=== PATIENT | male | born 1940 | race Caucasian/White ===

== ENCOUNTER 2017-11-08 15:42 | Inpatient (IN) | payer MEDICARE ==
[~2017-11-08] VITALS: Ht 167.6 cm; Wt 81.0 kg
[~2017-11-08 15:42] MED LIST: ASPI-611 PO; CLOP75TA15 PO; HCTZ25T; HYDR-565 PO; LOSA25TA96 PO; METO50TA16 PO; OMEP-50; SIMV40TA4 PO
[2017-11-08] MEDS ORDERED: aspirin 81mg tab.chew PO ONE (15:50)
[2017-11-08 16:15] LABS: BASOPHILS # (AUTO) 0.1 X10'3 (0-0.2); EOSINOPHILS # (AUTO) 0.2 X10'3 (0-0.9); EOSINOPHILS % (AUTO) 2.6 % (0-6); HEMOGLOBIN 13.5 g/dl (14.0-17.9); LYMPHOCYTES # (AUTO) 1.1 X10'3 (1.1-4.8); LYMPHOCYTES % (AUTO) 15.8 % (21-51); MEAN CORPUSCULAR HEMOGLOBIN 29.7 PG (27.0-31.0); MEAN CORPUSCULAR HGB CONC 35.6 % (33.0-36.5); MEAN CORPUSCULAR VOLUME 83.4 FL (78-98); MEAN PLATELET VOLUME 8.3 FL (7.4-10.4); MONOCYTES # (AUTO) 0.3 X10'3 (0-0.9); MONOCYTES % (AUTO) 4.2 % (2-12); NEUTROPHILS # (AUTO) 5.2 X10'3 (1.8-7.7); NEUTROPHILS % (AUTO) 76.4 % (42-75); PLATELET COUNT 204 X10'3 (140-440); RED BLOOD COUNT 4.55 X10'6 (4.70-6.10); RED CELL DISTRIBUTION WIDTH 13.6 % (11.5-14.5); WHITE BLOOD COUNT 6.8 X10'3 (4.5-11.0)
[2017-11-08 16:24] LABS: PARTIAL THROMBOPLASTIN TIME 25 SECONDS (22-32); PROTHROMBIN TIME 10.3 SECONDS (9.0-12.0)
[2017-11-08 16:36] LABS: ALANINE AMINOTRANSFERASE 22 U/L (12-78); ALBUMIN 3.5 G/DL (3.4-5.0); ALBUMIN/GLOBULIN RATIO 1.1 (1.1-1.5); ALKALINE PHOSPHATASE 56 IU/L (46-116); ANION GAP 9 (8-16); ASPARTATE AMINO TRANSFERASE 15 U/L (10-37); BILIRUBIN,TOTAL 0.5 MG/DL (0.1-1.0); BLOOD UREA NITROGEN 13 MG/DL (7-18); BUN/CREATININE RATIO 14.6 (5.4-32.0); CALCIUM 8.6 MG/DL (8.5-10.1); CHLORIDE 108 MMOL/L (99-107); CREATININE 0.89 MG/DL (0.60-1.10); GLUCOSE 154 MG/DL (70-104); MAGNESIUM 2.1 MG/DL (1.5-2.4); POTASSIUM 3.3 MMOL/L (3.5-5.1); SODIUM 144 MMOL/L (135-145); TOTAL CARBON DIOXIDE 26.7 MMOL/L (24-32); TOTAL PROTEIN 6.7 G/DL (6.4-8.2); eGFR 83 ML/MIN
[2017-11-08] MEDS ORDERED: mag hydrox/Alum hydrox/simeth 30ml oral suspension PO PRN (17:00)
[2017-11-08] MEDS ORDERED: HYDROcodone/acetaminophen 5mg/325mg tablet PO PRN (17:00)
[2017-11-08] MEDS ORDERED: magnesium hydroxide 30ml (MOM) UD suspension PO PRN (17:00)
[2017-11-08] MEDS ORDERED: acetaminophen 325mg tablet PO PRN (17:00)
[2017-11-08] MEDS ORDERED: ondansetron/PF 4mg/2ml inj IV PRN (17:00)
[2017-11-08 18:00] VITALS: BP 163/66
[2017-11-08] MEDS ORDERED: magnesium Cl slow-release 64mg tablet PO PRN (20:15)
[2017-11-08] MEDS ORDERED: potassium Cl 20 mEq SR tablet PO PRN (20:15)
[2017-11-08] MEDS ORDERED: nitroGLYCERIN 0.4mg SUBLingual tab SL PRN (20:15)
[2017-11-08] MEDS ORDERED: magnesium 4gm in 100ml NS 100 ML IV PRN (20:15)
[2017-11-08] MEDS ORDERED: magnesium 2GM in 50ml NS 50 ML IV PRN (20:15)
[2017-11-08] MEDS ORDERED: potassium Cl 40MEQ/NS 500ml 500 ML IV PRN ×2 (20:15)
[2017-11-08] MEDS: potassium Cl 20 mEq SR tablet PO PRN (20:32)
[2017-11-09] VITALS (15 sets, daily range): BP systolic 135–173; BP diastolic 47–88
[2017-11-09] MEDS: potassium Cl 20 mEq SR tablet PO PRN (00:31)
[2017-11-09 05:19] LABS: BASOPHILS % (AUTO) 0.5 % (0-1); EOSINOPHILS # (AUTO) 0.2 X10'3 (0-0.9); EOSINOPHILS % (AUTO) 3.5 % (0-6); HEMATOCRIT 39.8 % (42.0-52.0); HEMOGLOBIN 13.7 g/dl (14.0-17.9); LYMPHOCYTES # (AUTO) 1.7 X10'3 (1.1-4.8); LYMPHOCYTES % (AUTO) 25.7 % (21-51); MEAN CORPUSCULAR HEMOGLOBIN 29.3 PG (27.0-31.0); MEAN CORPUSCULAR HGB CONC 34.5 % (33.0-36.5); MEAN CORPUSCULAR VOLUME 85.1 FL (78-98); MEAN PLATELET VOLUME 8.7 FL (7.4-10.4); MONOCYTES # (AUTO) 0.3 X10'3 (0-0.9); MONOCYTES % (AUTO) 5.2 % (2-12); NEUTROPHILS # (AUTO) 4.2 X10'3 (1.8-7.7); NEUTROPHILS % (AUTO) 65.1 % (42-75); PLATELET COUNT 184 X10'3 (140-440); RED BLOOD COUNT 4.68 X10'6 (4.70-6.10); RED CELL DISTRIBUTION WIDTH 13.7 % (11.5-14.5); WHITE BLOOD COUNT 6.5 X10'3 (4.5-11.0)
[2017-11-09 05:51] LABS: ALANINE AMINOTRANSFERASE 22 U/L (12-78); ALBUMIN 3.3 G/DL (3.4-5.0); ALBUMIN/GLOBULIN RATIO 1.1 (1.1-1.5); ALKALINE PHOSPHATASE 52 IU/L (46-116); ANION GAP 9 (8-16); ASPARTATE AMINO TRANSFERASE 14 U/L (10-37); BILIRUBIN,TOTAL 0.5 MG/DL (0.1-1.0); BLOOD UREA NITROGEN 13 MG/DL (7-18); BUN/CREATININE RATIO 15.5 (5.4-32.0); CALCIUM 8.6 MG/DL (8.5-10.1); CHLORIDE 108 MMOL/L (99-107); CREATININE 0.84 MG/DL (0.60-1.10); GLUCOSE 95 MG/DL (70-104); MAGNESIUM 2.2 MG/DL (1.5-2.4); POTASSIUM 3.9 MMOL/L (3.5-5.1); SODIUM 143 MMOL/L (135-145); TOTAL CARBON DIOXIDE 26.2 MMOL/L (24-32); TOTAL PROTEIN 6.4 G/DL (6.4-8.2); eGFR 89 ML/MIN
[2017-11-09] MEDS ORDERED: enoxaparin 40mg/0.4ml syringe SUBCUT SCH (08:00)
[2017-11-09] MEDS ORDERED: iohexol 350 MG/ML 50ML vial IV ONE (12:06)
[2017-11-09] MEDS ORDERED: heparin 1,000unit/ml 10ml vial 10 ML ONE (12:06)
[2017-11-09] MEDS ORDERED: LIDOcaine 1% 30ml preserv. free vial ONE (12:06)
[2017-11-09] MEDS ORDERED: nitroGLYCERIN-Tridil 50MG/D5W 250 ML IV ONE (12:06)
[2017-11-09] MEDS ORDERED: iohexol 350MG/ML 100ml bottle IV ONE ×2 (12:06→13:01)
[2017-11-09] MEDS ORDERED: fentaNYL/PF 50MCG/1 ML 2ML syringe ONE (12:07)
[2017-11-09] MEDS ORDERED: midazolam 2 mg/2 ml injection ONE (12:07)
[2017-11-09] MEDS ORDERED: clopidogrel 300mg tablet ONE (13:22)
[2017-11-09] MEDS ORDERED: proCHLORperazine 10 MG/2 ml inj IV PRN (14:25)
[2017-11-09] MEDS ORDERED: clopidogrel 300mg tablet PO ONE (14:25)
[2017-11-09] MEDS ORDERED: magnesium hydroxide 30ml (MOM) UD suspension PO PRN (14:25)
[2017-11-09] MEDS ORDERED: mag hydrox/Alum hydrox/simeth 30ml oral suspension PO PRN (14:25)
[2017-11-09] MEDS ORDERED: cyclobenzaprine 10mg tablet PO PRN (14:25)
[2017-11-09] MEDS ORDERED: heparin 10,000 units/1 ML INJ IV PRN (14:25)
[2017-11-09] MEDS ORDERED: aspirin 325mg tablet PO ONE ×2 (14:25→19:00)
[2017-11-09] MEDS ORDERED: heparin 10,000 units/1 ML INJ IV ONE (14:25)
[2017-11-09] MEDS ORDERED: acetaminophen 325mg tablet PO PRN ×2 (14:25)
[2017-11-09] MEDS ORDERED: OXAZEpam 15mg capsule PO PRN (14:25)
[2017-11-09] MEDS ORDERED: normal saline 1000ml 1,000 ML IV SCH ×2 (14:45)
[2017-11-09] MEDS: morphine 4 MG/ML inj SYRINge IV PRN ×2 (19:13→23:59)
[2017-11-09] MEDS: docusate sod 100mg capsule PO SCH (20:00)
[2017-11-09] MEDS ORDERED: hydrALAZINE 20mg/ml inj. IV PRN (20:55)
[2017-11-09] MEDS ORDERED: metoprolol tartrate 50mg tablet PO ONE (22:20)
[2017-11-10] VITALS (10 sets, daily range): BP systolic 96–167; BP diastolic 51–74
[2017-11-10 05:56] LABS: BASOPHILS % (AUTO) 0.4 % (0-1); EOSINOPHILS # (AUTO) 0.2 X10'3 (0-0.9); EOSINOPHILS % (AUTO) 2.2 % (0-6); HEMOGLOBIN 14.2 g/dl (14.0-17.9); LYMPHOCYTES # (AUTO) 1.2 X10'3 (1.1-4.8); LYMPHOCYTES % (AUTO) 14.8 % (21-51); MEAN CORPUSCULAR HGB CONC 35.4 % (33.0-36.5); MEAN CORPUSCULAR VOLUME 84.6 FL (78-98); MEAN PLATELET VOLUME 8.7 FL (7.4-10.4); MONOCYTES # (AUTO) 0.5 X10'3 (0-0.9); MONOCYTES % (AUTO) 5.6 % (2-12); NEUTROPHILS # (AUTO) 6.5 X10'3 (1.8-7.7); PLATELET COUNT 173 X10'3 (140-440); RED BLOOD COUNT 4.72 X10'6 (4.70-6.10); RED CELL DISTRIBUTION WIDTH 13.9 % (11.5-14.5); WHITE BLOOD COUNT 8.4 X10'3 (4.5-11.0)
[2017-11-10 06:43] LABS: ALBUMIN 3.2 G/DL (3.4-5.0); ANION GAP 9 (8-16); BLOOD UREA NITROGEN 11 MG/DL (7-18); BUN/CREATININE RATIO 14.7 (5.4-32.0); CALCIUM 8.4 MG/DL (8.5-10.1); CHLORIDE 108 MMOL/L (99-107); CHOL/HDL RATIO 6.2 (0.00-4.99); CHOLESTEROL 181 MG/DL (0-200); CREATININE 0.75 MG/DL (0.60-1.10); GLUCOSE 117 MG/DL (70-104); HDL CHOLESTEROL 29 MG/DL (35-60); LDL CHOLESTEROL 131 MG/DL (50-100); MAGNESIUM 2.4 MG/DL (1.5-2.4); POTASSIUM 3.6 MMOL/L (3.5-5.1); SODIUM 142 MMOL/L (135-145); TOTAL CARBON DIOXIDE 25.1 MMOL/L (24-32); TRIGLYCERIDES 151 MG/DL (20-135); eGFR > 90 ML/MIN
[2017-11-10] MEDS ORDERED: HYDROchlorothiazide 25mg tablet PO SCH (08:00)
[2017-11-10] MEDS ORDERED: clopidogrel 75mg tablet PO SCH (08:00)
[2017-11-10] MEDS ORDERED: metoprolol tartrate 50mg tablet PO SCH (08:00)
[2017-11-10] MEDS ORDERED: losartan 50mg tablet PO SCH (08:00)
[2017-11-10] MEDS ORDERED: aspirin 325mg tablet PO SCH (08:30)
[2017-11-10] MEDS: docusate sod 100mg capsule PO SCH (08:38)
[2017-11-10] MEDS ORDERED: LOSA25TA96 PO (11:09)
[2017-11-10] MEDS ORDERED: NITR0.4T51 SL (11:09)
[2017-11-10] MEDS ORDERED: ATOR20TA66 PO (11:09)
[2017-11-10] MEDS ORDERED: atorvastatin 20mg tablet PO SCH (21:00)
== END 2017-11-10 12:58 | disposition home or self-care (01) | DRG 247 ==
LOC: ER 15:43 → ED HOLD 16:57 → SUR 3N 18:35 → ICU 2S 11-09 14:00 → CICU 2S 11-10 01:31
PROVIDERS: ADMIT Internal Medicine; ATTEND Internal Medicine
PROC: 0271346 Dilation of Coronary Artery, Two Arteries, Bifurcation, with Drug-eluting Intraluminal Device, Percutaneous Approach (ICD-10-PCS; principal; 2017-11-09)
PROC: 4A023N7 Measurement of Cardiac Sampling and Pressure, Left Heart, Percutaneous Approach (ICD-10-PCS; 2017-11-09)
PROC: B2111ZZ Fluoroscopy of Multiple Coronary Arteries using Low Osmolar Contrast (ICD-10-PCS; 2017-11-09)
PROC: B2151ZZ Fluoroscopy of Left Heart using Low Osmolar Contrast (ICD-10-PCS; 2017-11-09)
PROC: 02713ZZ Dilation of Coronary Artery, Two Arteries, Percutaneous Approach (ICD-10-PCS; 2017-11-09)
DX: I25.10 Atherosclerotic heart disease of native coronary artery without angina pectoris (principal); J44.9 Chronic obstructive pulmonary disease, unspecified; E78.5 Hyperlipidemia, unspecified; G47.30 Sleep apnea, unspecified; I10 Essential (primary) hypertension; I25.2 Old myocardial infarction; Z95.5 Presence of coronary angioplasty implant and graft; Z79.82 Long term (current) use of aspirin; Z79.02 Long term (current) use of antithrombotics/antiplatelets; Z79.899 Other long term (current) drug therapy; Z87.891 Personal history of nicotine dependence; Z82.49 Family history of ischemic heart disease and other diseases of the circulatory system
CPT/HCPCS: 92920; 93458; 99285; C9600; 36415; 71045; 80048; 80053; 80061; 83735; 83880; 84484; 85025; 85347; 85610; 85730; 87070; 93005; 99152; 99153; A4620; A6257; A6449; C1725; C1769; C1874; J0360; J0780; J1644; J1650; J2250; J2270; J3010; J3490; J7030; Q9967

== ENCOUNTER 2021-11-09 10:27 | Emergency (ER) | payer MEDICARE, OTHER ==
[~2021-11-09] VITALS: Ht 172.7 cm; Wt 73.2 kg
[~2021-11-09 10:27] MED LIST changes: +ATOR20TA66 PO; -HCTZ25T; +HYDR-4353 PO; -HYDR-565 PO; +HYDR25TA5; +NITR0.4T51 SL; -OMEP-50; +OMEP20CA16; -SIMV40TA4 PO
[2021-11-09] MEDS ORDERED: famotidine/PF 10 mg/ml inj IV ONE (11:05)
[2021-11-09] MEDS ORDERED: pantoprazole 40MG/NS 100ML BAG 100 ML IV ONE (11:05)
[2021-11-09 11:30] LABS: BASOPHILS % (AUTO) 0.2 % (0-1); EOSINOPHILS # (AUTO) 0.1 X10'3 (0-0.9); HEMATOCRIT 36.7 % (42.0-52.0); HEMOGLOBIN 12.4 g/dl (14.0-17.9); LYMPHOCYTES # (AUTO) 1.3 X10'3 (1.1-4.8); LYMPHOCYTES % (AUTO) 14.7 % (21-51); MEAN CORPUSCULAR HEMOGLOBIN 28.9 PG (27.0-31.0); MEAN CORPUSCULAR HGB CONC 33.8 g/dL (33.0-36.5); MEAN CORPUSCULAR VOLUME 85.5 FL (78-98); MONOCYTES # (AUTO) 0.4 X10'3 (0-0.9); MONOCYTES % (AUTO) 4.9 % (2-12); NEUTROPHILS # (AUTO) 7.3 X10'3 (1.8-7.7); NEUTROPHILS % (AUTO) 79.2 % (42-75); PLATELET COUNT 270 X10'3 (140-440); RED CELL DISTRIBUTION WIDTH 14.1 % (11.5-14.5); WHITE BLOOD COUNT 9.2 X10'3 (4.5-11.0)
[2021-11-09 11:44] LABS: APTT 25 SECONDS (22-32)
[2021-11-09 11:45] LABS: ALBUMIN 3.9 G/DL (3.4-5.0); ANION GAP 11 (8-16); BILIRUBIN,TOTAL 0.8 MG/DL (0.1-1.0); BLOOD UREA NITROGEN 11 MG/DL (7-18); BUN/CREATININE RATIO 10.5 (5.4-32.0); CALCIUM 8.8 MG/DL (8.5-10.1); CHLORIDE 102 MMOL/L (99-107); CREATININE 1.05 MG/DL (0.60-1.10); GLUCOSE 126 MG/DL (70-104); POTASSIUM 3.5 MMOL/L (3.5-5.1); SODIUM 140 MMOL/L (135-145); TOTAL CARBON DIOXIDE 27.2 MMOL/L (24-32); eGFR 68 ML/MIN
[2021-11-09 11:46] LABS: ALANINE AMINOTRANSFERASE 30 U/L (12-78); ALBUMIN/GLOBULIN RATIO 1.3 (1.1-1.5); ALKALINE PHOSPHATASE 70 IU/L (46-116); ASPARTATE AMINO TRANSFERASE 17 U/L (10-37)
[2021-11-09] MEDS ORDERED: METR-159 PO (14:10)
[2021-11-09] MEDS ORDERED: CIPR-259 PO (14:10)
[2021-11-09 14:28] VITALS: BP 132/77
[2021-11-09] MEDS ORDERED: pantoprazole 40MG/NS 100ML BAG 100 ML IV SCH (16:00)
== END 2021-11-09 14:29 | disposition home or self-care (01) ==
LOC: ER 10:27
DX: K62.5 Hemorrhage of anus and rectum (principal); R19.5 Other fecal abnormalities; I10 Essential (primary) hypertension; I25.2 Old myocardial infarction; J44.9 Chronic obstructive pulmonary disease, unspecified; Z98.890 Other specified postprocedural states; Z79.82 Long term (current) use of aspirin; Z79.2 Long term (current) use of antibiotics; Z79.899 Other long term (current) drug therapy
CPT/HCPCS: 36415; 71045; 74176; 80053; 82140; 85025; 85610; 85730; 86885; 86900; 86901; 93005; 96374; 96375; 99285; C9113; J3490

== ENCOUNTER 2021-11-22 08:30 | Day surgery (SDC) | payer MEDICARE, OTHER ==
[~2021-11-22] VITALS: Ht 172.7 cm; Wt 75.5 kg
[2021-11-22] MEDS ORDERED: MIDAZolam 1 MG/ML 5ML VIAL ONE (08:36)
[2021-11-22] MEDS ORDERED: fentaNYL/PF 50MCG/1 ML 2ML syringe ONE (08:36)
[2021-11-22 08:44] VITALS: BP 152/53
[2021-11-22] MEDS ORDERED: CYAN1TAB69 (08:50)
[2021-11-22] MEDS ORDERED: CALC600T22 PO (08:50)
[2021-11-22] MEDS ORDERED: CHOL100046 PO (08:51)
[2021-11-22] MEDS ORDERED: PREVAGEN (08:52)
[2021-11-22] MEDS ORDERED: MULT-1085 PO (08:52)
[2021-11-22] MEDS ORDERED: FAMO10TA (08:52)
[2021-11-22] MEDS ORDERED: ACET-2615 PO (08:53)
[2021-11-22] MEDS ORDERED: ATOR-2 PO (08:54)
[2021-11-22] MEDS ORDERED: LOSA1TAB36 PO (08:55)
[2021-11-22 09:47] VITALS: BP 110/57
[2021-11-22 09:57] VITALS: BP 121/53
[2021-11-22 10:07] VITALS: BP 126/51
== END 2021-11-22 10:20 | disposition home or self-care (01) ==
LOC: GI LAB 08:30
PROVIDERS: ATTEND Internal Medicine Gastroenterology
DX: K62.5 Hemorrhage of anus and rectum (principal); D12.2 Benign neoplasm of ascending colon; D12.4 Benign neoplasm of descending colon; K63.5 Polyp of colon; K57.30 Diverticulosis of large intestine without perforation or abscess without bleeding; I25.2 Old myocardial infarction; Z87.891 Personal history of nicotine dependence; Z95.5 Presence of coronary angioplasty implant and graft
CPT/HCPCS: 45380; 45385; 88305; C1773; G0500; J2250; J3010; J7030; Z7512; 99152; A4620

== ENCOUNTER 2022-10-15 05:56 | Day surgery (SDC) | payer MEDICARE, OTHER ==
[2022-10-12 12:55] LABS: ALBUMIN 3.9 G/DL (3.4-5.0); ALBUMIN/GLOBULIN RATIO 1.2 (1.1-1.5); ALKALINE PHOSPHATASE 85 IU/L (46-116); BLOOD UREA NITROGEN 15 MG/DL (7-18); BUN/CREATININE RATIO 15.2 (10.0-20.0); CALCIUM 8.9 MG/DL (8.5-10.1); CHLORIDE 104 MMOL/L (99-107); CREATININE 0.99 MG/DL (0.60-1.10); PRE OP ALT 16 U/L (30-65); PRE OP ANION GAP 7 (8-16); PRE OP AST 13 U/L (10-37); PRE OP BILIRUB, TOTAL 0.6 MG/DL (0.0-1.0); PRE OP GLUCOSE 107 MG/DL (70-104); PRE OP POTASSIUM 3.8 MMOL/L (3.4-5.1); PRE OP SODIUM 139 MMOL/L (135-145); TOTAL CARBON DIOXIDE 28.2 MMOL/L (24-32); TOTAL PROTEIN 7.2 G/DL (6.4-8.2); eGFR 73 ML/MIN
[2022-10-12 12:57] LABS: BASOPHILS % (AUTO) 0.6 % (0-1); EOSINOPHILS # (AUTO) 0.1 X10'3 (0-0.9); EOSINOPHILS % (AUTO) 1.9 % (0-6); LYMPHOCYTES # (AUTO) 1.2 X10'3 (1.1-4.8); LYMPHOCYTES % (AUTO) 16.8 % (21-51); MEAN CORPUSCULAR HEMOGLOBIN 28.2 PG (27.0-31.0); MEAN CORPUSCULAR HGB CONC 34.2 g/dL (33.0-36.5); MEAN CORPUSCULAR VOLUME 82.6 FL (78-98); MEAN PLATELET VOLUME 8.7 FL (7.4-10.4); MONOCYTES # (AUTO) 0.4 X10'3 (0-0.9); MONOCYTES % (AUTO) 5.6 % (2-12); NEUTROPHILS # (AUTO) 5.6 X10'3 (1.8-7.7); NEUTROPHILS % (AUTO) 75.1 % (42-75); PRE OP HEMATOCRIT 38.9 % (42.0-52.0); PRE OP HEMOGLOBIN 13.3 g/dL (14.0-17.9); PRE OP PLATELET COUNT 210 X10'3 (140-440); RED BLOOD COUNT 4.72 X10'6 (4.70-6.10)
[~2022-10-15] VITALS: Ht 170.2 cm; Wt 75.6 kg
[~2022-10-15 05:56] MED LIST changes: -ASPI-611 PO; +ATOR-2 PO; -ATOR20TA66 PO; +BACL10TA2 PO; -HYDR-4353 PO; -HYDR25TA5; +LOSA-420 PO; -LOSA25TA96 PO; -METO50TA16 PO; -NITR0.4T51 SL; -OMEP20CA16; +OMEP20CA16 PO; +cefazolin 2gm/D5W 100mL 100 ML IV ONE; +famotidine 20mg tablet PO ONE; +ringers solution, lacted 1,000 ML IV SCH
[2022-10-15 06:10] VITALS: BP 164/63
[2022-10-15] MEDS ORDERED: BUPIVAcaine/PF 2.5 mg/ml (0.25%) 30ml vial ONE (08:05)
[2022-10-15] MEDS ORDERED: morphine 4 MG/ML inj SYRINge IV PRN (08:05)
[2022-10-15] MEDS ORDERED: meperidine/PF 25mg/ml syringe IV PRN ×3 (08:05)
[2022-10-15] MEDS ORDERED: ondansetron/PF 4mg/2ml inj IV PRN (08:05)
[2022-10-15] MEDS ORDERED: morphine 2 MG/ML inj. syringe IV PRN (08:05)
[2022-10-15] MEDS ORDERED: ringers solution, lacted 1,000 ML IV SCH (08:05)
[2022-10-15] MEDS ORDERED: proCHLORperazine 10 MG/2 ml inj IV PRN (08:05)
[2022-10-15] MEDS ORDERED: LIDOcaine 0.5% (5mg/ml) 50ml vial ONE (08:15)
[2022-10-15] MEDS ORDERED: midazolam 1 mg/ML 2ml injection ONE (08:18)
[2022-10-15] MEDS ORDERED: fentaNYL/PF 50MCG/1 ML 2ML syringe ONE (08:18)
[2022-10-15 08:47] VITALS: BP 146/53
--- NOTE | 2022-10-15 08:47 | NUR ---
Received from OR via [facility] TO RECOVERY ROOM 6, accompanied by Anesthesiologist DR JAIN and report given by Anesthesiolgist. PT PRESENTS WITH PIV 20G LEFT HAND, RIGHT HAND DRESSING CDI, VSS. Addendum: 10/15/22 at 0903 by Gale Siddiqui RN, RN Amended: Links added.
[2022-10-15 09:00] VITALS: BP 155/61
[2022-10-15 09:10] VITALS: BP 153/62
[2022-10-15 09:20] VITALS: BP 148/63
[2022-10-15 09:27] VITALS: BP 148/63
--- NOTE | 2022-10-15 09:27 | NUR ---
ABLE TO SAFELY AMBULATE AND TRANSFER SELF. IV TAKEN OUT WITHOUT ANY COMPLICATIONS. ALL DISCHARGE INSTRUCTIONS COVERED WITH PATIENT AND ALL QUESTIONS ANSWERED. PATIENT TAKEN OUT VIA WHEELCHAIR TO PERSONAL VEHICLE WHERE FAMILY/FRIEND DROVE PATIENT HOME. Addendum: 10/15/22 at 0945 by Gale Siddiqui RN, RN Amended: Links added.
== END 2022-10-15 09:27 | disposition home or self-care (01) ==
LOC: PAS 05:56
PROVIDERS: ATTEND Orthopaedic Surgery Hand Surgery
DX: G56.01 Carpal tunnel syndrome, right upper limb (principal); M65.311 Trigger thumb, right thumb; Z79.899 Other long term (current) drug therapy; Z98.890 Other specified postprocedural states; Z87.891 Personal history of nicotine dependence; I25.2 Old myocardial infarction; I10 Essential (primary) hypertension
CPT/HCPCS: 26055; 36415; 64721; 80053; 82948; 85025; 93005; J0690; J2250; J3010; J3490; J7030; J7120; Z7506; Z7512; A4215; A6449

== ENCOUNTER 2023-01-14 00:27 | Emergency (ER) | payer MEDICARE, OTHER ==
[~2023-01-14] VITALS: Ht 170.2 cm; Wt 72.7 kg
[~2023-01-14 00:27] MED LIST changes: -cefazolin 2gm/D5W 100mL 100 ML IV ONE; -famotidine 20mg tablet PO ONE; -ringers solution, lacted 1,000 ML IV SCH
[2023-01-14 01:08] LABS: BASOPHILS % (AUTO) 0.5 % (0-1); EOSINOPHILS # (AUTO) 0.1 X10'3 (0-0.9); EOSINOPHILS % (AUTO) 1.7 % (0-6); HEMATOCRIT 38.4 % (42.0-52.0); HEMOGLOBIN 13.2 g/dl (14.0-17.9); LYMPHOCYTES # (AUTO) 0.9 X10'3 (1.1-4.8); LYMPHOCYTES % (AUTO) 10.6 % (21-51); MEAN CORPUSCULAR HEMOGLOBIN 28.8 PG (27.0-31.0); MEAN CORPUSCULAR HGB CONC 34.4 g/dL (33.0-36.5); MEAN CORPUSCULAR VOLUME 83.8 FL (78-98); MEAN PLATELET VOLUME 8.4 FL (7.4-10.4); MONOCYTES # (AUTO) 0.3 X10'3 (0-0.9); MONOCYTES % (AUTO) 3.8 % (2-12); NEUTROPHILS % (AUTO) 83.4 % (42-75); PLATELET COUNT 193 X10'3 (140-440); RED BLOOD COUNT 4.58 X10'6 (4.70-6.10); RED CELL DISTRIBUTION WIDTH 15.2 % (11.5-14.5); WHITE BLOOD COUNT 8.4 X10'3 (4.5-11.0)
[2023-01-14 01:14] LABS: ALANINE AMINOTRANSFERASE 30 U/L (12-78); ALBUMIN 3.7 G/DL (3.4-5.0); ALBUMIN/GLOBULIN RATIO 1.3 (1.1-1.5); ALKALINE PHOSPHATASE 79 IU/L (46-116); ANION GAP 9 (8-16); ASPARTATE AMINO TRANSFERASE 22 U/L (10-37); BILIRUBIN,TOTAL 0.7 MG/DL (0.1-1.0); BLOOD UREA NITROGEN 14 MG/DL (7-18); BUN/CREATININE RATIO 12.6 (10.0-20.0); CALCIUM 8.6 MG/DL (8.5-10.1); CHLORIDE 105 MMOL/L (99-107); CREATININE 1.11 MG/DL (0.60-1.10); GLUCOSE 134 MG/DL (70-104); POTASSIUM 3.3 MMOL/L (3.5-5.1); SODIUM 142 MMOL/L (135-145); TOTAL PROTEIN 6.6 G/DL (6.4-8.2); eGFR 64 ML/MIN
[2023-01-14] MEDS ORDERED: acetaminophen 325mg tablet PO ONE (02:50)
[2023-01-14 03:00] VITALS: BP 144/54
== END 2023-01-14 03:01 | disposition home or self-care (01) ==
LOC: ER 00:28
DX: R07.9 Chest pain, unspecified (principal); I10 Essential (primary) hypertension; J44.9 Chronic obstructive pulmonary disease, unspecified
CPT/HCPCS: 36415; 71045; 80053; 83880; 84484; 85025; 93005; 99285

== ENCOUNTER 2023-03-28 14:37 | Emergency (ER) | payer MEDICARE, OTHER ==
[~2023-03-28] VITALS: Ht 170.2 cm; Wt 71.4 kg
[2023-03-28 15:17] LABS: ALANINE AMINOTRANSFERASE 22 U/L (12-78); ALBUMIN 3.8 G/DL (3.4-5.0); ALBUMIN/GLOBULIN RATIO 1.3 (1.1-1.5); ALKALINE PHOSPHATASE 86 IU/L (46-116); ANION GAP 6 (8-16); ASPARTATE AMINO TRANSFERASE 12 U/L (10-37); BILIRUBIN,TOTAL 0.9 MG/DL (0.1-1.0); BLOOD UREA NITROGEN 8 MG/DL (7-18); BUN/CREATININE RATIO 6.8 (10.0-20.0); CALCIUM 9.2 MG/DL (8.5-10.1); CHLORIDE 104 MMOL/L (99-107); CREATININE 1.18 MG/DL (0.60-1.10); GLUCOSE 139 MG/DL (70-104); POTASSIUM 3.5 MMOL/L (3.5-5.1); SODIUM 140 MMOL/L (135-145); TOTAL CARBON DIOXIDE 29.6 MMOL/L (24-32); TOTAL PROTEIN 6.8 G/DL (6.4-8.2); eCRCL 47 ML/MIN; eGFR 59 ML/MIN
[2023-03-28 15:22] LABS: BASOPHILS % (AUTO) 0.2 % (0-1); EOSINOPHILS # (AUTO) 0.1 X10'3 (0-0.9); EOSINOPHILS % (AUTO) 0.7 % (0-6); HEMATOCRIT 39.4 % (42.0-52.0); HEMOGLOBIN 13.4 g/dl (14.0-17.9); LYMPHOCYTES # (AUTO) 0.9 X10'3 (1.1-4.8); LYMPHOCYTES % (AUTO) 8.9 % (21-51); MEAN CORPUSCULAR HEMOGLOBIN 29.4 PG (27.0-31.0); MEAN CORPUSCULAR VOLUME 86.6 FL (78-98); MEAN PLATELET VOLUME 8.9 FL (7.4-10.4); MONOCYTES # (AUTO) 0.5 X10'3 (0-0.9); MONOCYTES % (AUTO) 4.4 % (2-12); NEUTROPHILS # (AUTO) 8.9 X10'3 (1.8-7.7); NEUTROPHILS % (AUTO) 85.8 % (42-75); PLATELET COUNT 223 X10'3 (140-440); RED BLOOD COUNT 4.55 X10'6 (4.70-6.10); RED CELL DISTRIBUTION WIDTH 14.2 % (11.5-14.5); WHITE BLOOD COUNT 10.4 X10'3 (4.5-11.0)
[2023-03-28 15:24] LABS: PRO BRAIN NATRIURETIC PEPTIDE 230 PG/ML (0-450)
[2023-03-28 16:20] VITALS: BP 135/48; PULSE 64; RESP 16; TEMP 97.9; O2SAT 98
[2023-04-03] MEDS ORDERED: AMOX-580 PO ×2 (07:59)
[2023-04-03] MEDS ORDERED: LACT1CAP55 PO (07:59)
[2023-04-03] MEDS ORDERED: POTA-206 PO (09:51)
[2023-04-03] MEDS ORDERED: CEFD300C3 PO (12:21)
[2023-04-03] MEDS ORDERED: HYDR-4069 PO (12:21)
[2023-04-03] MEDS ORDERED: METR-159 PO (12:21)
== END 2023-03-28 21:03 | disposition left against medical advice (07) ==
LOC: ER 14:37
DX: R07.89 Other chest pain (principal); Z53.21 Procedure and treatment not carried out due to patient leaving prior to being seen by health care provider
CPT/HCPCS: 36415; 71045; 80053; 83880; 84484; 85025; 99281

== ENCOUNTER 2023-06-11 07:53 | Day surgery (SDC) | payer MEDICARE, OTHER ==
[~2023-06-11] VITALS: Ht 167.6 cm; Wt 72.2 kg
[2023-06-11] VITALS (10 sets, daily range): BP systolic 106–148; BP diastolic 55–84; PULSE 68–88; RESP 14–20; TEMP 97.7; O2SAT 96–100
[~2023-06-11 07:53] MED LIST changes: +CEFD300C17 PO; +CLOP-32 PO; -CLOP75TA15 PO; +IRON; +METR-159 PO; -OMEP20CA16 PO; +POTA-206 PO; +cefazolin 2gm/D5W 100mL 100 ML IV ONE
[2023-06-11] MEDS ORDERED: normal saline 1000ml 1,000 ML IV SCH (08:20)
[2023-06-11] MEDS ORDERED: FAMO-156 PO (08:22)
[2023-06-11 08:47] LABS: BASOPHILS # (AUTO) 0.1 X10'3 (0-0.2); BASOPHILS % (AUTO) 0.5 % (0-1); EOSINOPHILS # (AUTO) 0.1 X10'3 (0-0.9); EOSINOPHILS % (AUTO) 0.8 % (0-6); HEMATOCRIT 45.4 % (42.0-52.0); HEMOGLOBIN 15.3 g/dl (14.0-17.9); LYMPHOCYTES # (AUTO) 1.4 X10'3 (1.1-4.8); LYMPHOCYTES % (AUTO) 12.4 % (21-51); MEAN CORPUSCULAR HEMOGLOBIN 29.3 PG (27.0-31.0); MEAN CORPUSCULAR HGB CONC 33.7 g/dL (33.0-36.5); MEAN PLATELET VOLUME 7.8 FL (7.4-10.4); MONOCYTES # (AUTO) 0.6 X10'3 (0-0.9); MONOCYTES % (AUTO) 5.1 % (2-12); NEUTROPHILS # (AUTO) 9.2 X10'3 (1.8-7.7); NEUTROPHILS % (AUTO) 81.2 % (42-75); PLATELET COUNT 262 X10'3 (140-440); RED BLOOD COUNT 5.22 X10'6 (4.70-6.10); RED CELL DISTRIBUTION WIDTH 14.1 % (11.5-14.5); WHITE BLOOD COUNT 11.3 X10'3 (4.5-11.0)
[2023-06-11 08:59] LABS: APTT 26 SECONDS (22-32); PROTHROMBIN TIME 10.3 SECONDS (9.0-12.0)
[2023-06-11 09:12] LABS: ANION GAP 8 (8-16); BLOOD UREA NITROGEN 16 MG/DL (7-18); BUN/CREATININE RATIO 14.7 (10.0-20.0); CHLORIDE 101 MMOL/L (99-107); CREATININE 1.09 MG/DL (0.60-1.10); GLUCOSE 122 MG/DL (70-104); POTASSIUM 3.8 MMOL/L (3.5-5.1); SODIUM 138 MMOL/L (135-145); TOTAL CARBON DIOXIDE 28.6 MMOL/L (24-32)
[2023-06-11 09:13] LABS: ALBUMIN 3.9 G/DL (3.4-5.0); CALCIUM 9.2 MG/DL (8.5-10.1); eCRCL 48 ML/MIN; eGFR 65 ML/MIN
[2023-06-11] MEDS ORDERED: LIDOcaine 1% W/epiNEPHrine 1:100,000 20ml vial ONE (10:55)
[2023-06-11] MEDS ORDERED: fentaNYL/PF 50MCG/1 ML 2ML syringe ONE (10:55)
[2023-06-11] MEDS ORDERED: midazolam 1 mg/ML 2ml injection ONE (10:55)
[2023-06-11] MEDS ORDERED: ceFAZolin 1000mg inj ONE (10:55)
[2023-06-11] MEDS ORDERED: amiodarone 50MG/ML inj IV ONE (12:15)
[2023-06-11] MEDS ORDERED: HYDROcodone/acetaminophen 10/325mg tab PO PRN (13:20)
[2023-06-11] MEDS ORDERED: HYDROcodone/acetaminophen 5mg/325mg tablet PO PRN (13:20)
[2023-06-11] MEDS ORDERED: vancomycin/NS 1 GM in NS 250 ML IV ONE (14:00)
== END 2023-06-11 17:15 | disposition home or self-care (01) ==
LOC: SSTAY O 07:53
PROVIDERS: ATTEND Internal Medicine Cardiovascular Disease
DX: I49.5 Sick sinus syndrome (principal); I10 Essential (primary) hypertension; E78.5 Hyperlipidemia, unspecified; I25.10 Atherosclerotic heart disease of native coronary artery without angina pectoris; I25.2 Old myocardial infarction; J44.9 Chronic obstructive pulmonary disease, unspecified; I45.5 Other specified heart block; I47.10 Supraventricular tachycardia, unspecified; G47.30 Sleep apnea, unspecified; I27.20 Pulmonary hypertension, unspecified; I08.1 Rheumatic disorders of both mitral and tricuspid valves; Z95.5 Presence of coronary angioplasty implant and graft; Z79.899 Other long term (current) drug therapy; Z98.890 Other specified postprocedural states; Z79.01 Long term (current) use of anticoagulants
CPT/HCPCS: 33208; 36415; 71046; 80048; 85025; 85610; 85730; 93005; 99152; 99153; C1785; C1898; J0282; J0690; J2250; J3010; J3370; J3490; J7030; A4565; A6449

== ENCOUNTER 2023-07-11 10:02 | Day surgery (SDC) | payer MEDICARE, OTHER ==
[2023-07-10 10:26] LABS: BASOPHILS # (AUTO) 0.1 X10'3 (0-0.2); BASOPHILS % (AUTO) 0.5 % (0-1); EOSINOPHILS # (AUTO) 0.1 X10'3 (0-0.9); EOSINOPHILS % (AUTO) 0.8 % (0-6); HEMATOCRIT 46.6 % (42.0-52.0); HEMOGLOBIN 15.8 g/dl (14.0-17.9); LYMPHOCYTES # (AUTO) 1.3 X10'3 (1.1-4.8); LYMPHOCYTES % (AUTO) 10.3 % (21-51); MEAN CORPUSCULAR HEMOGLOBIN 28.9 PG (27.0-31.0); MEAN CORPUSCULAR HGB CONC 33.9 g/dL (33.0-36.5); MEAN CORPUSCULAR VOLUME 85.1 FL (78-98); MEAN PLATELET VOLUME 7.9 FL (7.4-10.4); MONOCYTES # (AUTO) 0.8 X10'3 (0-0.9); MONOCYTES % (AUTO) 6.7 % (2-12); NEUTROPHILS # (AUTO) 10.3 X10'3 (1.8-7.7); NEUTROPHILS % (AUTO) 81.7 % (42-75); PLATELET COUNT 254 X10'3 (140-440); RED BLOOD COUNT 5.47 X10'6 (4.70-6.10); RED CELL DISTRIBUTION WIDTH 14.5 % (11.5-14.5); WHITE BLOOD COUNT 12.5 X10'3 (4.5-11.0)
[2023-07-10 10:46] LABS: ALBUMIN 3.8 G/DL (3.4-5.0); ANION GAP 3 (8-16); BLOOD UREA NITROGEN 17 MG/DL (7-18); BUN/CREATININE RATIO 16.2 (10.0-20.0); CALCIUM 9.4 MG/DL (8.5-10.1); CHLORIDE 104 MMOL/L (99-107); CREATININE 1.05 MG/DL (0.60-1.10); GLUCOSE 110 MG/DL (70-104); POTASSIUM 4.6 MMOL/L (3.5-5.1); SODIUM 139 MMOL/L (135-145); TOTAL CARBON DIOXIDE 32.1 MMOL/L (24-32); eGFR 68 ML/MIN
[2023-07-11] VITALS (12 sets, daily range): BP systolic 110–164; BP diastolic 52–70; PULSE 69–75; RESP 16; TEMP 98; O2SAT 97–100
[~2023-07-11] VITALS: Ht 172.7 cm; Wt 74.6 kg
[~2023-07-11 10:02] MED LIST changes: -CEFD300C17 PO; +FAMO-156 PO; -METR-159 PO; -POTA-206 PO; -cefazolin 2gm/D5W 100mL 100 ML IV ONE
[2023-07-11] MEDS ORDERED: LORazepam 0.5 MG tablet PO ONE (10:30)
[2023-07-11] MEDS ORDERED: normal saline 1000ml 1,000 ML IV SCH (10:30)
[2023-07-11] MEDS ORDERED: MIDAZolam 1mg/ml 10ml vial IV ONE (10:30)
[2023-07-11] MEDS ORDERED: morphine 10mg/ml inj. IV ONE (10:30)
[2023-07-11] MEDS ORDERED: diphenhydrAMINE 25mg capsule PO ONE (10:30)
[2023-07-11] MEDS ORDERED: amiodarone 150mg/dext, iso-os 100 ML IV ONE (10:30)
[2023-07-11] MEDS ORDERED: atropine 0.1mg/ml 10ml syringe IV ONE (10:30)
[2023-07-11] MEDS ORDERED: SOTA80TA PO (10:54)
[2023-07-11] MEDS ORDERED: WARF3TAB56 PO (10:54)
[2023-07-11 11:30] LABS: INR 1.1 INR; PROTHROMBIN TIME 11.3 SECONDS (9.0-12.0)
[2023-07-11] MEDS ORDERED: enoxaparin 80mg/0.8ml syringe SUBCUT STA (11:56)
== END 2023-07-11 13:15 | disposition home or self-care (01) ==
LOC: SSTAY O 10:02
PROVIDERS: ATTEND Internal Medicine Cardiovascular Disease
DX: I48.0 Paroxysmal atrial fibrillation (principal); I25.10 Atherosclerotic heart disease of native coronary artery without angina pectoris; I10 Essential (primary) hypertension; E78.5 Hyperlipidemia, unspecified; I49.5 Sick sinus syndrome; I25.2 Old myocardial infarction; J44.9 Chronic obstructive pulmonary disease, unspecified; I45.5 Other specified heart block; G47.30 Sleep apnea, unspecified; I27.20 Pulmonary hypertension, unspecified; I08.1 Rheumatic disorders of both mitral and tricuspid valves; Z95.5 Presence of coronary angioplasty implant and graft; Z79.01 Long term (current) use of anticoagulants; Z79.899 Other long term (current) drug therapy; Z98.890 Other specified postprocedural states; Z82.49 Family history of ischemic heart disease and other diseases of the circulatory system
CPT/HCPCS: 36415; 80048; 85025; 85610; 92960; 93005; J1650; J2250; J2274; J7030; A4620

== ENCOUNTER 2024-06-12 10:40 | Emergency (ER) | payer MEDICARE, OTHER ==
[~2024-06-12] VITALS: Ht 172.7 cm; Wt 74.0 kg
[~2024-06-12 10:40] MED LIST changes: +SOTA80TA PO; +WARF3TAB56 PO
[2024-06-12 12:28] VITALS: BP 139/65; PULSE 70; RESP 18; TEMP 98.9; O2SAT 99
[2024-07-22] MEDS ORDERED: ACET-890 PO (16:37)
[2024-07-22] MEDS ORDERED: WARF3TAB56 PO (17:33)
== END 2024-06-12 12:58 | disposition home or self-care (01) ==
LOC: ER 10:41
DX: S00.83XA Contusion of other part of head, initial encounter (principal); S00.12XA Contusion of left eyelid and periocular area, initial encounter; I10 Essential (primary) hypertension; I25.2 Old myocardial infarction; J44.9 Chronic obstructive pulmonary disease, unspecified; Z79.899 Other long term (current) drug therapy; Z79.01 Long term (current) use of anticoagulants; Z98.890 Other specified postprocedural states; W18.30XA Fall on same level, unspecified, initial encounter; Y93.89 Activity, other specified; Y92.89 Other specified places as the place of occurrence of the external cause; Y99.8 Other external cause status
CPT/HCPCS: 70450; 70486; 73030; 99284

== ENCOUNTER 2024-07-27 05:19 | Inpatient (IN) | payer MEDICARE, OTHER ==
[2024-07-22 15:51] LABS: BASOPHILS # (AUTO) 0.1 X10'3 (0-0.2); BASOPHILS % (AUTO) 0.4 % (0-1); EOSINOPHILS # (AUTO) 0.2 X10'3 (0-0.9); EOSINOPHILS % (AUTO) 1.5 % (0-6); LYMPHOCYTES % (AUTO) 17.1 % (21-51); MEAN CORPUSCULAR HEMOGLOBIN 30.1 PG (27.0-31.0); MEAN CORPUSCULAR HGB CONC 34.6 g/dL (33.0-36.5); MEAN CORPUSCULAR VOLUME 87.1 FL (78-98); MEAN PLATELET VOLUME 8.1 FL (7.4-10.4); MONOCYTES # (AUTO) 0.6 X10'3 (0-0.9); MONOCYTES % (AUTO) 4.9 % (2-12); NEUTROPHILS # (AUTO) 8.7 X10'3 (1.8-7.7); NEUTROPHILS % (AUTO) 76.1 % (42-75); PRE OP HEMATOCRIT 41.1 % (42.0-52.0); PRE OP HEMOGLOBIN 14.2 g/dL (14.0-17.9); PRE OP PLATELET COUNT 251 X10'3 (140-440); PRE OP WHITE BLOOD COUNT 11.5 10'3 (4.8-10.8); RED BLOOD COUNT 4.72 X10'6 (4.70-6.10); RED CELL DISTRIBUTION WIDTH 15.3 % (11.5-14.5)
[2024-07-22 15:54] LABS: BILIRUBIN,URINE NEGATIVE (Neg); CLARITY,URINE CLEAR (Clear); COLOR,URINE YELLOW (Yellow); GLUCOSE, URINE NEGATIVE (Neg); KETONES,URINE NEGATIVE (Neg); LEUKOCYTE ESTERASE ,URINE NEGATIVE (Neg); NITRITES, URINE NEGATIVE (Neg); OCCULT BLOOD,URINE TRACE-INTACT (Neg); PROTEIN,URINE NEGATIVE (Neg); UROBILINOGEN,URINE 0.2 E.U/dL (0.2-1.0)
[2024-07-22 15:56] LABS: UA COLLECTION TYPE CLN CATCH MIDSTREAM
[2024-07-22 15:59] LABS: SQUAMOUS EPITHELIAL CELL,UR NONE SEEN /LPF (FEW)
[2024-07-22 16:00] LABS: BACTERIA,URINE NONE SEEN /HPF (Neg); RBC,URINE 0-2 /HPF (0-2); WBC,URINE NONE SEEN /HPF (0-4)
[2024-07-22 16:10] LABS: ALBUMIN 4.3 G/DL (3.4-5.0); ALBUMIN/GLOBULIN RATIO 1.4 (1.1-1.5); ALKALINE PHOSPHATASE 94 IU/L (46-116); BLOOD UREA NITROGEN 17 MG/DL (7-18); BUN/CREATININE RATIO 17.2 (10.0-20.0); CALCIUM 9.3 MG/DL (8.5-10.1); CHLORIDE 104 MMOL/L (99-107); CREATININE 0.99 MG/DL (0.60-1.10); PRE OP ALT 46 U/L (30-65); PRE OP ANION GAP 7 (8-16); PRE OP AST 22 U/L (10-37); PRE OP BILIRUB, TOTAL 1.2 MG/DL (0.0-1.0); PRE OP GLUCOSE 97 MG/DL (70-104); PRE OP PROTIME 18.8 SECONDS (9.0-12.0); PRE OP SODIUM 140 MMOL/L (135-145); TOTAL CARBON DIOXIDE 29.1 MMOL/L (24-32); TOTAL PROTEIN 7.3 G/DL (6.4-8.2); eGFR 72 ML/MIN
[2024-07-22 16:33] LABS: PRE OP INR 1.9 INR
[~2024-07-27] VITALS: Ht 172.7 cm; Wt 75.9 kg
[2024-07-27] VITALS (34 sets, daily range): BP systolic 124–177; BP diastolic 50–69; PULSE 68–89; RESP 11–20; TEMP 97.5–98.7; O2SAT 83–100
[~2024-07-27 05:19] MED LIST changes: +ACET-890 PO; -BACL10TA2 PO; -FAMO-156 PO; -IRON
[2024-07-27] MEDS: tranexamic acid 1gm/0.7% sal. 100 ML IV ONE (05:30)
[2024-07-27] MEDS: ringers solution, lacted 1,000 ML IV SCH (05:55)
[2024-07-27] MEDS: famotidine 20mg tablet PO ONE (05:56)
[2024-07-27] MEDS: DOCUMENT DATE & TIME OF BETA-BLOCKER PO ONE (06:21)
[2024-07-27] MEDS: ceFAZolin 2gm in dextrose, iso 50 ML IV ONE (06:21)
[2024-07-27] MEDS ORDERED: gelatin sponge, absorbable (Gelfoam 100) sponge TP ONE (06:53)
[2024-07-27] MEDS ORDERED: vancomycin 1,000mg inj ONE (06:53)
[2024-07-27] MEDS ORDERED: Thrombin (Bovine) 5,000 unit vial TP ONE (06:53)
[2024-07-27] MEDS ORDERED: methylene blue (5mg/ml) 50mg/10ml ampul IV ONE (06:53)
[2024-07-27 06:58] LABS: PRE OP PARTIAL THROMB. TIME 26 SECONDS (22-32); PROTHROMBIN TIME 10.8 SECONDS (9.0-12.0)
[2024-07-27] MEDS ORDERED: midazolam 1 mg/ML 2ml injection ONE (07:11)
[2024-07-27] MEDS ORDERED: fentaNYL/PF 50MCG/1 ML 2ML syringe ONE (07:11)
[2024-07-27] MEDS ORDERED: ROPIVAcaine 0.5% (5mg/ml) 30ml vial ONE (07:12)
[2024-07-27] MEDS ORDERED: LIDOcaine 1%/PF 5ML 10 MG/ML VIAL ONE (07:14)
[2024-07-27] MEDS ORDERED: rocuronium 10mg/ml inj IV ONE (07:14)
[2024-07-27] MEDS ORDERED: propofol inj 20 ML IV ONE (07:14)
[2024-07-27] MEDS ORDERED: HYDROcodone/acetaminophen 5mg/325mg tablet PO PRN (07:15)
[2024-07-27] MEDS ORDERED: magnesium hydroxide 30ml (MOM) UD suspension PO PRN (07:15)
[2024-07-27] MEDS ORDERED: ondansetron/PF 4mg/2ml inj IV PRN ×2 (07:15→08:35)
[2024-07-27] MEDS ORDERED: acetaminophen 325mg tablet PO PRN ×2 (07:15→10:45)
[2024-07-27] MEDS ORDERED: bisacodyl 10mg suppository rectal RC PRN (07:15)
[2024-07-27] MEDS ORDERED: naloxone 0.4 mg/ml inj IV PRN (07:15)
[2024-07-27] MEDS ORDERED: cloNIDine hcl/PF 100mcg/ml inj ONE (07:18)
[2024-07-27] MEDS ORDERED: sevoflurane 250ml liquid IH ONE (07:20)
[2024-07-27] MEDS ORDERED: dexamethasone sod phosphate 4mg/ml inj. ONE (07:54)
[2024-07-27] MEDS ORDERED: ePHEDrine 50MG/ML INJ. ONE (07:57)
[2024-07-27] MEDS ORDERED: proCHLORperazine 10 MG/2 ml inj IV PRN (08:35)
[2024-07-27] MEDS ORDERED: morphine 4 MG/ML inj SYRINge IV PRN (08:35)
[2024-07-27] MEDS ORDERED: meperidine/PF 25mg/ml syringe IV PRN ×2 (08:35)
[2024-07-27] MEDS ORDERED: morphine 2 MG/ML inj. syringe IV PRN (08:35)
[2024-07-27] MEDS ORDERED: enalaprilat dihydrate 2.5mg/2ml vial IV PRN (08:35)
[2024-07-27] MEDS ORDERED: ringers solution, lacted 1,000 ML IV SCH (08:35)
[2024-07-27] MEDS ORDERED: neostigmine methylsulfate 1 MG/ML 10ml vial ONE (10:07)
[2024-07-27] MEDS ORDERED: glycopyrrolate 0.2mg/ml inj ONE (10:07)
[2024-07-27] MEDS: meperidine/PF 25mg/ml syringe IV PRN (12:05)
[2024-07-27] MEDS: labetalol 20mg/4ml (5mg/ml) syringe IV PRN (12:21)
[2024-07-27] MEDS: potassium cl 20mEq in 1/2 NS 1,000 ML IV SCH (13:45)
[2024-07-27] MEDS ORDERED: ceFAZolin 2gm in dextrose, iso 50 ML IV SCH (15:00)
[2024-07-27] MEDS: polyvinyl alcohol eye drops 15ML BOTTLE EACHEYE PRN (17:20)
[2024-07-27] MEDS: ceFAZolin 2gm in dextrose, iso 50 ML IV SCH (17:20)
[2024-07-27] MEDS: sotalol HCl 40mg (1/2 tablet) PO SCH (21:39)
[2024-07-27] MEDS: atorvastatin 20mg tablet PO SCH (21:39)
[2024-07-28] VITALS (8 sets, daily range): BP systolic 152–173; BP diastolic 43–62; PULSE 71–81; RESP 14–16; TEMP 97.4–98.8; O2SAT 94–100
[2024-07-28] MEDS: HYDROcodone/acetaminophen 5mg/325mg tablet PO PRN (01:24)
[2024-07-28] MEDS: LORazepam 2 mg/ml vial IM ONE (06:08)
[2024-07-28 06:57] LABS: BASOPHILS % (AUTO) 0.3 % (0-1); EOSINOPHILS % (AUTO) 0.1 % (0-6); HEMATOCRIT 36.5 % (42.0-52.0); HEMOGLOBIN 12.8 g/dl (14.0-17.9); LYMPHOCYTES # (AUTO) 1.2 X10'3 (1.1-4.8); LYMPHOCYTES % (AUTO) 8.7 % (21-51); MEAN CORPUSCULAR HEMOGLOBIN 30.8 PG (27.0-31.0); MEAN CORPUSCULAR HGB CONC 35.1 g/dL (33.0-36.5); MEAN CORPUSCULAR VOLUME 87.6 FL (78-98); MEAN PLATELET VOLUME 8.6 FL (7.4-10.4); MONOCYTES # (AUTO) 1.3 X10'3 (0-0.9); MONOCYTES % (AUTO) 9.4 % (2-12); NEUTROPHILS # (AUTO) 11.2 X10'3 (1.8-7.7); NEUTROPHILS % (AUTO) 81.5 % (42-75); PLATELET COUNT 249 X10'3 (140-440); RED BLOOD COUNT 4.17 X10'6 (4.70-6.10); RED CELL DISTRIBUTION WIDTH 15.1 % (11.5-14.5); WHITE BLOOD COUNT 13.7 X10'3 (4.5-11.0)
[2024-07-28 08:07] LABS: ALANINE AMINOTRANSFERASE 36 U/L (12-78); ALBUMIN 3.8 G/DL (3.4-5.0); ALBUMIN/GLOBULIN RATIO 1.2 (1.1-1.5); ALKALINE PHOSPHATASE 85 IU/L (46-116); ANION GAP 11 (8-16); ASPARTATE AMINO TRANSFERASE 54 U/L (10-37); BILIRUBIN,TOTAL 1.2 MG/DL (0.1-1.0); BLOOD UREA NITROGEN 15 MG/DL (7-18); BUN/CREATININE RATIO 14.7 (10.0-20.0); CALCIUM 8.7 MG/DL (8.5-10.1); CHLORIDE 104 MMOL/L (99-107); CREATININE 1.02 MG/DL (0.60-1.10); GLUCOSE 144 MG/DL (70-104); POTASSIUM 3.9 MMOL/L (3.5-5.1); SODIUM 139 MMOL/L (135-145); eCRCL 54 ML/MIN; eGFR 70 ML/MIN
[2024-07-28] MEDS: acetaminophen 325mg tablet PO SCH (08:11)
[2024-07-28] MEDS: HYDROchlorothiazide 12.5mg capsule PO SCH (08:11)
[2024-07-28] MEDS: losartan 50mg tablet PO SCH (08:14)
[2024-07-28] MEDS ORDERED: warfarin 3mg tablet PO ONE (20:00)
[2024-07-28] MEDS: diphenhydrAMINE 25mg capsule PO PRN (20:13)
[2024-07-28 20:29] LABS: INR 1.1 INR; PROTHROMBIN TIME 11.5 SECONDS (9.0-12.0)
[2024-07-28] MEDS: warfarin 3mg tablet PO ONE (21:31)
[2024-07-29 06:00] VITALS: BP 161/52; PULSE 74; RESP 16; TEMP 98.5; O2SAT 99
[2024-07-29 06:18] LABS: PROTHROMBIN TIME 10.6 SECONDS (9.0-12.0)
[2024-07-29 07:07] LABS: ALANINE AMINOTRANSFERASE 40 U/L (12-78); ALBUMIN 3.4 G/DL (3.4-5.0); ALBUMIN/GLOBULIN RATIO 1.1 (1.1-1.5); ALKALINE PHOSPHATASE 71 IU/L (46-116); ANION GAP 9 (8-16); ASPARTATE AMINO TRANSFERASE 56 U/L (10-37); BILIRUBIN,TOTAL 1.3 MG/DL (0.1-1.0); BLOOD UREA NITROGEN 17 MG/DL (7-18); BUN/CREATININE RATIO 22.7 (10.0-20.0); CALCIUM 8.6 MG/DL (8.5-10.1); CHLORIDE 104 MMOL/L (99-107); CREATININE 0.75 MG/DL (0.60-1.10); GLUCOSE 152 MG/DL (70-104); SODIUM 140 MMOL/L (135-145); TOTAL CARBON DIOXIDE 26.9 MMOL/L (24-32); TOTAL PROTEIN 6.4 G/DL (6.4-8.2); eCRCL 73 ML/MIN; eGFR > 90 ML/MIN
[2024-07-29 07:08] LABS: POTASSIUM 3.7 MMOL/L (3.5-5.1)
[2024-07-29 07:21] LABS: BASOPHILS # (AUTO) 0.1 X10'3 (0-0.2); BASOPHILS % (AUTO) 0.6 % (0-1); EOSINOPHILS % (AUTO) 0.5 % (0-6); HEMATOCRIT 31.8 % (42.0-52.0); HEMOGLOBIN 11.3 g/dl (14.0-17.9); LYMPHOCYTES # (AUTO) 0.9 X10'3 (1.1-4.8); LYMPHOCYTES % (AUTO) 10.4 % (21-51); MEAN CORPUSCULAR HEMOGLOBIN 30.9 PG (27.0-31.0); MEAN CORPUSCULAR HGB CONC 35.6 g/dL (33.0-36.5); MEAN CORPUSCULAR VOLUME 86.8 FL (78-98); MONOCYTES # (AUTO) 0.9 X10'3 (0-0.9); MONOCYTES % (AUTO) 10.5 % (2-12); PLATELET COUNT 172 X10'3 (140-440); RED BLOOD COUNT 3.66 X10'6 (4.70-6.10)
[2024-07-29 08:18] VITALS: BP_SYST 161; PULSE 74
[2024-07-31] MEDS ORDERED: warfarin 3mg tablet PO SCH (08:00)
== END 2024-07-29 11:26 | disposition home or self-care (01) | DRG 483 ==
LOC: PAS 05:19 → OBSVTOIN 07:19 → PACU 07:19 → ORTHO 4S 14:00
PROVIDERS: ADMIT Specialist; ATTEND Specialist
PROC: 3E0T3BZ Introduction of Anesthetic Agent into Peripheral Nerves and Plexi, Percutaneous Approach (ICD-10-PCS; 2024-07-27)
PROC: 3E0T33Z Introduction of Anti-inflammatory into Peripheral Nerves and Plexi, Percutaneous Approach (ICD-10-PCS; 2024-07-27)
PROC: 0RRJ00Z Replacement of Right Shoulder Joint with Reverse Ball and Socket Synthetic Substitute, Open Approach (ICD-10-PCS; principal; 2024-07-27 07:20)
DX: M19.011 Primary osteoarthritis, right shoulder (principal); G92.8 Other toxic encephalopathy; M75.101 Unspecified rotator cuff tear or rupture of right shoulder, not specified as traumatic; I10 Essential (primary) hypertension; I48.91 Unspecified atrial fibrillation; E78.5 Hyperlipidemia, unspecified; T42.4X5A Adverse effect of benzodiazepines, initial encounter
CPT/HCPCS: 36415; 71046; 73030; 76000; 80053; 81001; 82140; 82948; 84145; 85025; 85610; 85730; 86885; 86900; 86901; 87081; 93005; 97162; 97535; 97760; A4565; A4618; A6449; A6455; A7000; C1776; G0378; J0690; J0735; J1100; J2060; J2175; J2250; J2405; J2704; J2710; J2795; J3010; J3370; J3480; J3490; J7120; Q0163; Q9968